=== PATIENT | male | born 1945 | race Caucasian/White ===

== ENCOUNTER → 2022-05-12 | Outpatient (CLI) | payer MEDICARE ==
[~2022-05-12] MED LIST: ISOVUE-300 61% 50ML VIAL ONE; LIDOCAINE 1% SDV 5ML VIAL ONE; methylPREDNISolone SUSP 40MG/ML 1ML VIAL (DEPO MEDROL) ONE
== END ==
LOC: M PLARAD 13:50
PROVIDERS: ATTEND Physician Assistant
DX: M19.031 Primary osteoarthritis, right wrist (principal)
CPT/HCPCS: 76000; J1030; Q9967

== ENCOUNTER → 2022-07-28 | Outpatient (CLI) | payer MEDICARE ==
[~2022-07-28] MED LIST changes: +GLIP5TAB8 PO; -ISOVUE-300 61% 50ML VIAL ONE; -LIDOCAINE 1% SDV 5ML VIAL ONE; +LOSA25TA13 PO; +METF-838 PO; +METO1TAB7 PO; +MYRB50TA PO; +ROSU10TA6 PO; +SEMA7TAB2 PO; +VITA200044 PO; +WARF-21 PO; -methylPREDNISolone SUSP 40MG/ML 1ML VIAL (DEPO MEDROL) ONE
== END ==
LOC: M LABSMTC 09:09
PROVIDERS: ATTEND Anesthesiology
DX: Z01.812 Encounter for preprocedural laboratory examination (principal); Z11.52 Encounter for screening for COVID-19

== ENCOUNTER 2022-07-31 08:30 | Day surgery (SDC) | payer MEDICARE ==
[~2022-07-31] VITALS: Ht 180.3 cm; Wt 135.6 kg
[~2022-07-31 08:30] MED LIST changes: +NS 1,000 ML IV ONE
[2022-07-31] MEDS ORDERED: propofoL 200 MG/20 ML VIAL As Ordered ONE (09:58)
[2022-07-31] MEDS ORDERED: LIDOCAINE 2% 100MG/5ML SDV (FOR ANES.) As Ordered ONE (09:59)
[2022-07-31 10:29] VITALS: BP 166/76
== END 2022-07-31 10:49 | disposition home or self-care (01) ==
LOC: M OPP 08:30
PROVIDERS: ATTEND Internal Medicine Gastroenterology
DX: Z86.010 Personal history of colon polyps (principal); K63.5 Polyp of colon; K64.0 First degree hemorrhoids; K57.30 Diverticulosis of large intestine without perforation or abscess without bleeding; Z79.01 Long term (current) use of anticoagulants; Z79.02 Long term (current) use of antithrombotics/antiplatelets; Z79.84 Long term (current) use of oral hypoglycemic drugs; Z79.899 Other long term (current) drug therapy; Z87.891 Personal history of nicotine dependence; E11.9 Type 2 diabetes mellitus without complications; G47.30 Sleep apnea, unspecified; Z99.89 Dependence on other enabling machines and devices; Z86.718 Personal history of other venous thrombosis and embolism; N32.81 Overactive bladder; I10 Essential (primary) hypertension; E78.5 Hyperlipidemia, unspecified; N52.01 Erectile dysfunction due to arterial insufficiency